=== PATIENT | female | born 1960 | race African-American/Black ===

== ENCOUNTER 2017-09-19 13:40 | Emergency (ER) | payer MEDICARE, OTHER ==
[~2017-09-19] VITALS: Ht 175.3 cm; Wt 145.0 kg
[2017-09-19] MEDS ORDERED: BOSU500T PO (13:56)
[2017-09-19] MEDS ORDERED: PANT40TA4 PO (13:56)
[2017-09-19] MEDS ORDERED: ASPI-1159 PO (13:56)
[2017-09-19] MEDS ORDERED: FERR325T6 PO (13:56)
[2017-09-19] MEDS ORDERED: MONT10TA21 PO (13:56)
[2017-09-19] MEDS ORDERED: FURO20TA4 PO (13:56)
[2017-09-19] MEDS ORDERED: HYDR-4009 PO (13:57)
[2017-09-19] MEDS ORDERED: SODIUM CHLORIDE 0.9% 1,000 ML IV ONE (14:54)
[2017-09-19] MEDS ORDERED: MORPHINE SULFATE 4 MG/ML CPJ (NOT FOR IM USE) IV STA ×2 (14:54→20:36)
[2017-09-19] MEDS ORDERED: ONDANSETRON HCL 4MG/2ML VIAL IV STA ×2 (14:54→20:36)
[2017-09-19] MEDS ORDERED: ALBUTEROL (0.5%) 2.5MG/0.5ML NEB HHN ONE (15:00)
[2017-09-19 17:35] LABS: BASOPHILS % 0.3 % (0.0-2.0); EOSINOPHILS % 4.4 % (0.0-5.0); HEMATOCRIT. 40.9 % (36.0-48.0); HEMOGLOBIN. 13.6 g/dL (12.0-16.0); LYMPHOCYTES % 19.9 % (20.0-50.0); MEAN CORPUSCULAR HEMOGLOBIN 27.7 pg (28.0-32.0); MEAN CORPUSCULAR VOLUME 83.2 fL (81.0-99.0); MEAN PLATELET VOLUME 8.4 fl (7.4-10.4); MONOCYTES % 7.7 % (2.0-8.0); NEUTROPHILS % 67.7 % (40.0-76.0); PLATELET 207 x1000/uL (130-400); RED BLOOD CELL COUNT 4.92 mill/uL (4.2-5.4)
[2017-09-19 17:41] LABS: CHLORIDE 105 mEq/L (98-107)
[2017-09-19 17:50] LABS: D-DIMER 0.28 mg/L FEU (<0.50); INR 1.2; PARTIAL THROMBOPLASTIN TIME 30.1 sec (23.4-31.0); PROTHROMBIN TIME 12.7 sec (9.4-11.6)
[2017-09-19 17:51] LABS: HCG SCREEN NEGATIVE
[2017-09-19] MEDS ORDERED: ASPIRIN 325MG EC TABLET PO ONE (18:30)
[2017-09-19 21:38] LABS: CLARITY URINE CLEAR (CLEAR); COLOR URINE DARK YELLOW (YELLOW); KETONES URINE NEGATIVE (NEGATIVE); LEUKOCYTE ESTERASE URINE TRACE (NEGATIVE); NITRITE URINE POSITIVE (NEGATIVE); OCCULT BLOOD URINE NEGATIVE (NEGATIVE); PROTEIN URINE 1+ (NEGATIVE); SPECIFIC GRAVITY URINE 1.028 (1.005-1.030)
[2017-09-20 01:39] VITALS: BP 118/52
[2017-09-20] MEDS ORDERED: ONDANSETRON HCL 4MG/2ML VIAL IV STA (01:41)
[2017-09-20] MEDS ORDERED: MORPHINE SULFATE 4 MG/ML CPJ (NOT FOR IM USE) IV SCH (01:44)
[2017-09-20] MEDS ORDERED: ONDANSETRON 4MG ODT PO SCH (01:44)
== END 2017-09-20 01:59 | disposition short-term general hospital (02) ==
LOC: ER 15:27 → CANRESERV 19:36 → ENRESERV 19:36 → CANBEDREQ 09-20 00:07 → ER 09-20 01:59
DX: R07.89 Other chest pain (principal); R10.13 Epigastric pain; R50.9 Fever, unspecified; K72.90 Hepatic failure, unspecified without coma; J44.9 Chronic obstructive pulmonary disease, unspecified; Z90.49 Acquired absence of other specified parts of digestive tract; Z98.890 Other specified postprocedural states; Z87.891 Personal history of nicotine dependence; Z79.82 Long term (current) use of aspirin; Z79.899 Other long term (current) drug therapy
CPT/HCPCS: 36415; 71045; 74176; 80053; 80307; 81003; 83690; 83880; 84484; 84703; 85025; 85379; 85610; 85730; 93005; 93970; 96361; 96374; 96375; 96376; 99285; J2270; J2405; J7030; J7611; Q0162